=== PATIENT | female | born 1965 | race Caucasian/White ===

== ENCOUNTER 2022-08-10 02:33 | Emergency (ER) | payer BC ==
[2022-08-10] MEDS ORDERED: Sodium Chloride 0.9% 10 ML Syringe FLUSH PRN (03:09)
[2022-08-10] MEDS ORDERED: Iopamidol 612 MG/ML 100 ML Bottle IV ONE (03:29)
[2022-08-10] MEDS ORDERED: Sodium Chloride 0.9% 50 ML IV SCH (03:30)
[2022-08-10 03:39] LABS: ESTIMATED GFR 52 mL/min (>60)
[2022-08-10] MEDS ORDERED: HYDROmorphone 0.5 MG/0.5 ML Syringe IVPUSH ONE ×2 (03:57→06:18)
[2022-08-10] MEDS ORDERED: Ondansetron 4 MG/2 ML SDV IVPUSH ONE (05:37)
[2022-08-10] MEDS ORDERED: Sodium Chloride 0.9% 1,000 ML IV SCH (05:45)
[2022-08-10] MEDS ORDERED: cefTRIAXone 2 GM in Sodium Chloride 0.9% 50 ML IV ONE (05:45)
[2022-08-10 06:48] VITALS: BP 138/78; PULSE 80
== END 2022-08-10 06:40 ==
LOC: JP.ED 02:33
DX: N13.2 Hydronephrosis with renal and ureteral calculous obstruction (principal); N39.0 Urinary tract infection, site not specified; R31.9 Hematuria, unspecified; E20.9 Hypoparathyroidism, unspecified; Z79.899 Other long term (current) drug therapy
CPT/HCPCS: 36415; 74177; 80053; 81001; 83605; 85025; 86140; 87086; 87088; 87186; 87635; 96365; 96375; 96376; 99284; J0696; J1170; J2405; J3490; J7030; Q9967; U0002

== ENCOUNTER 2022-08-15 11:06 | Emergency (ER) | payer BC ==
[2022-08-15 12:42] LABS: ESTIMATED GFR 48 mL/min (>60)
[2022-08-15] MEDS ORDERED: Ketorolac 30 MG/ML SDV IM ONE (13:04)
[2022-08-15] MEDS ORDERED: Acetaminophen/oxyCODONE 325-5 MG Tab PO ONE (13:05)
[2022-08-15 15:16] VITALS: BP 139/83; PULSE 83
== END 2022-08-15 15:42 | disposition home or self-care (01) ==
LOC: JP.ED 11:06
DX: R10.9 Unspecified abdominal pain (principal); N02.9 Recurrent and persistent hematuria with unspecified morphologic changes; Z79.899 Other long term (current) drug therapy; Z79.84 Long term (current) use of oral hypoglycemic drugs; Z90.710 Acquired absence of both cervix and uterus; Z87.891 Personal history of nicotine dependence
CPT/HCPCS: 36415; 74176; 80053; 81001; 85025; 87086; 96372; 99284; A9270; J1885

== ENCOUNTER 2022-09-06 11:36 | Emergency (ER) | payer BC ==
[2022-09-06] MEDS ORDERED: Levofloxacin/Dextrose 5%-Water 750 MG in Premix Bag 1 BAG IV SCH (14:45)
[2022-09-06] MEDS ORDERED: Lactated Ringers 1,000 ML IV SCH (14:45)
[2022-09-06 15:22] LABS: ESTIMATED GFR 48 mL/min (>60)
[2022-09-06] MEDS ORDERED: Ketorolac 30 MG/ML SDV IM ONE (15:24)
[2022-09-06 15:37] LABS: CORONAVIRUS COVID-19 NAA NEGATIVE (NEGATIVE)
[2022-09-06] MEDS ORDERED: fentaNYL 100 MCG/2 ML SDV IVPUSH ONE (16:28)
[2022-09-06 18:34] VITALS: BP 106/54; PULSE 68
== END 2022-09-06 18:50 | disposition home or self-care (01) ==
LOC: JP.ED 11:36
DX: N39.0 Urinary tract infection, site not specified (principal); I25.10 Atherosclerotic heart disease of native coronary artery without angina pectoris; E78.00 Pure hypercholesterolemia, unspecified; I10 Essential (primary) hypertension; Z90.710 Acquired absence of both cervix and uterus; Z79.899 Other long term (current) drug therapy; Z88.8 Allergy status to other drugs, medicaments and biological substances; Z79.82 Long term (current) use of aspirin; Z79.84 Long term (current) use of oral hypoglycemic drugs; Z87.891 Personal history of nicotine dependence; Z20.822 Contact with and (suspected) exposure to COVID-19
CPT/HCPCS: 0241U; 36415; 80053; 80305; 81001; 83605; 84145; 85025; 86140; 87040; 87086; 96365; 96372; 96375; 99284; J1885; J1956; J3010; J7120

== ENCOUNTER 2022-09-18 02:23 | Emergency (ER) | payer BC ==
[2022-09-18] MEDS ORDERED: Acetaminophen/HYDROcodone 325-5 MG Tab PO ONE (04:06)
[2022-09-18] MEDS ORDERED: Sulfamethoxazole/Trimethoprim 800-160 MG Tab PO ONE (04:33)
[2022-09-18 05:28] VITALS: BP 135/70; PULSE 75
== END 2022-09-18 05:31 | disposition home or self-care (01) ==
LOC: JP.ED 02:23
DX: T83.84XA Pain due to genitourinary prosthetic devices, implants and grafts, initial encounter (principal); R33.9 Retention of urine, unspecified; R31.9 Hematuria, unspecified; D64.9 Anemia, unspecified; I10 Essential (primary) hypertension; I25.10 Atherosclerotic heart disease of native coronary artery without angina pectoris; I25.2 Old myocardial infarction; F41.9 Anxiety disorder, unspecified; F32.A Depression, unspecified; K21.9 Gastro-esophageal reflux disease without esophagitis; E20.9 Hypoparathyroidism, unspecified; Z79.899 Other long term (current) drug therapy; Z88.8 Allergy status to other drugs, medicaments and biological substances; Z87.891 Personal history of nicotine dependence
CPT/HCPCS: 36415; 51702; 80305; 81001; 85025; 99284; A9270

== ENCOUNTER 2022-09-20 06:13 | Emergency (ER) | payer BC ==
[2022-09-20 06:24] VITALS: BP 130/74; PULSE 61
[2022-09-20] MEDS ORDERED: Sulfamethoxazole/Trimethoprim 800-160 MG Tab PO ONE (07:02)
== END 2022-09-20 07:16 | disposition home or self-care (01) ==
LOC: JP.ED 06:13
DX: D64.9 Anemia, unspecified (principal); E78.00 Pure hypercholesterolemia, unspecified; I10 Essential (primary) hypertension; I25.2 Old myocardial infarction; K21.9 Gastro-esophageal reflux disease without esophagitis; E03.9 Hypothyroidism, unspecified; Z88.8 Allergy status to other drugs, medicaments and biological substances; Z79.84 Long term (current) use of oral hypoglycemic drugs; Z79.899 Other long term (current) drug therapy
CPT/HCPCS: 36415; 85025; 86850; 86900; 86901; 99283; A9270

== ENCOUNTER 2025-05-05 19:50 | Emergency (ER) | payer BC ==
[2025-05-05 20:05] LABS: BASOPHILS ABSOLUTE AUTO 0.04 K/uL (0.00-0.10); BASOPHILS PERCENT AUTO 0.5 % (0.1-1.3); EOSINOPHILS ABSOLUTE AUTO 0.20 K/uL (0.00-0.40); EOSINOPHILS PERCENT AUTO 2.6 % (0.0-5.4); IMMATURE GRAN ABSOLUTE AUTO 0.04 K/uL (0.00-0.23); IMMATURE GRAN PERCENT AUTO 0.5 % (0.0-0.7); LYMPHOCYTES ABSOLUTE AUTO 2.73 K/uL (0.8-3.3); LYMPHOCYTES PERCENT AUTO 35.9 % (11.4-47.7); MONOCYTES ABSOLUTE AUTO 0.83 K/uL (0.20-0.90); MONOCYTES PERCENT AUTO 10.9 % (3.3-12.6); NEUTROPHILS ABSOLUTE AUTO 3.77 K/uL (1.0-7.6); NEUTROPHILS PERCENT AUTO 49.6 % (40.0-78.1); PLATELET COUNT,PLT 260 K/uL (130-375); RED BLOOD CELL COUNT 4.22 M/uL (3.77-5.24); WHITE BLOOD CELL COUNT,WBC 7.6 K/uL (3.2-11.0)
[2025-05-05 20:26] LABS: BLOOD UREA NITROGEN,BUN 21 mg/dL (7-18); CARBON DIOXIDE,CO2 29 mmol/L (21-32); CHLORIDE,CL 103 mmol/L (100-108); CREATININE 0.9 mg/dL (0.6-1.0); ESTIMATED GFR 73 mL/min (>60); GLUCOSE RANDOM 220 mg/dL (74-106); POTASSIUM,K 4.0 mmol/L (3.6-5.2); SODIUM,NA 141 mmol/L (140-148); TROPONIN I HIGH SENSITIVITY 9.6 pg/mL (<=60.3)
[2025-05-05 21:36] VITALS: BP 145/75; PULSE 61
== END 2025-05-05 21:58 | disposition home or self-care (01) ==
LOC: JP.ED 19:50
DX: R51.9 Headache, unspecified (principal); I10 Essential (primary) hypertension; E78.00 Pure hypercholesterolemia, unspecified; I25.2 Old myocardial infarction; I25.10 Atherosclerotic heart disease of native coronary artery without angina pectoris; K21.9 Gastro-esophageal reflux disease without esophagitis; Z90.710 Acquired absence of both cervix and uterus; Z88.8 Allergy status to other drugs, medicaments and biological substances; Z79.899 Other long term (current) drug therapy; Z79.84 Long term (current) use of oral hypoglycemic drugs; Z79.82 Long term (current) use of aspirin; Z79.890 Hormone replacement therapy
CPT/HCPCS: 36415; 70450; 71046; 80048; 82947; 84484; 85025; 93005; 96372; 99285; A9270; J2765

== ENCOUNTER 2025-06-09 21:08 | Emergency (ER) | payer BC, OTHER ==
[2025-06-09 23:28] VITALS: BP 118/70; PULSE 56
== END 2025-06-10 00:51 ==
LOC: JP.ED 21:08
DX: K02.9 Dental caries, unspecified (principal); I25.10 Atherosclerotic heart disease of native coronary artery without angina pectoris; I25.2 Old myocardial infarction; I10 Essential (primary) hypertension; E78.00 Pure hypercholesterolemia, unspecified; K21.9 Gastro-esophageal reflux disease without esophagitis; Z90.710 Acquired absence of both cervix and uterus; Z88.8 Allergy status to other drugs, medicaments and biological substances; Z79.84 Long term (current) use of oral hypoglycemic drugs; Z79.82 Long term (current) use of aspirin; Z79.890 Hormone replacement therapy; Z79.899 Other long term (current) drug therapy
CPT/HCPCS: 99283